=== PATIENT | female | born 1965 | race Caucasian/White ===

== ENCOUNTER → 2025-03-31 13:10 | Outpatient (REF) | payer BC, SELFPAY | LOC: HWRAD 13:10 | PROVIDERS: ATTENDING PHYSICIAN Obstetrics & Gynecology Gynecology | DX: R10.2 Pelvic and perineal pain (principal) | CPT/HCPCS: 76856 ==

== ENCOUNTER 2025-10-01 05:58 | Day surgery (SDC) | payer BC, SELFPAY ==
[2025-09-29 08:55] LABS: Hematocrit 39.8 % (37.0-47.0); Hemoglobin 13.2 g/dL (12.0-16.0); Mean Corp Hgb Conc. 33.2 g/dL (33.0-37.0); Mean Corpuscular Volume 88.8 fL (81.0-99.0); Nucleated Red Blood Cells % 0 %; Platelet Count 285 10^3/uL (130-400); Red Cell Dist. Width 13.1 % (11.5-14.5)
[2025-09-29 13:54] VITALS: BMI 19.9
[2025-10-01] VITALS (7 sets, daily range): BP systolic 108–123; BP diastolic 63–72; BMI 19.9
[2025-10-01] MEDS: NORMOSOL-R/PLASMALYTE-A 1000 IV (07:16)
== END 2025-10-01 10:40 | disposition home or self-care (01) ==
LOC: SDS 05:58
PROVIDERS: ATTENDING PHYSICIAN Obstetrics & Gynecology Gynecology; FAMILY PHYSICIAN Family Medicine
DX: D06.0 Carcinoma in situ of endocervix (principal); N72 Inflammatory disease of cervix uteri
CPT/HCPCS: 57461; 85025; 88305; 88307; 88341; 88342; 93005